=== PATIENT | female | born 1960 | race Caucasian/White ===

== ENCOUNTER → 2018-05-22 16:00 | Outpatient (CLI) | payer OTHER | END | disposition home or self-care (01) | LOC: D.MRI 16:00 | DX: M54.31 Sciatica, right side (principal) ==

== ENCOUNTER → 2019-09-09 14:13 | Outpatient (CLI) | payer OTHER | END | disposition home or self-care (01) | LOC: D.US 08:30 | PROVIDERS: ATTEND Nurse Practitioner | DX: R94.5 Abnormal results of liver function studies (principal) ==

== ENCOUNTER → 2019-09-15 20:29 | Outpatient (CLI) | payer OTHER | END | disposition home or self-care (01) | LOC: D.MAMMO 08-17 13:00 | PROVIDERS: ATTEND Family Medicine | DX: Z12.31 Encounter for screening mammogram for malignant neoplasm of breast (principal) ==

== ENCOUNTER → 2020-03-09 08:57 | Outpatient (CLI) | payer OTHER ==
[2020-03-09 10:07] LABS: ALBUMIN 3.6 g/dL (3.4-5.0); BILIRUBIN - DIRECT 0.1 mg/dL (0.00-0.30); BILIRUBIN - INDIRECT 0.2 mg/dL (0.00-1.00); BILIRUBIN - TOTAL 0.3 mg/dL (0.2-1.3); PROTEIN - SERUM 7.2 g/dL (6.4-8.2)
== END | disposition home or self-care (01) ==
LOC: D.US 02-15 08:30
PROVIDERS: ATTEND Internal Medicine Gastroenterology
DX: K76.0 Fatty (change of) liver, not elsewhere classified (principal)

== ENCOUNTER → 2020-09-29 08:52 | Outpatient (CLI) | payer OTHER | END | disposition home or self-care (01) | LOC: D.NM 08:52 | PROVIDERS: ATTEND Internal Medicine Gastroenterology | DX: R93.89 Abnormal findings on diagnostic imaging of other specified body structures (principal) ==

== ENCOUNTER 2020-09-29 11:00 | Outpatient (CLI) | payer OTHER ==
[2020-09-06 11:03] LABS: ALBUMIN 3.5 g/dL (3.4-5.0); BILIRUBIN - DIRECT 0.15 mg/dL (0.00-0.30); BILIRUBIN - INDIRECT 0.4 mg/dL (0.00-1.00); BILIRUBIN - TOTAL 0.55 mg/dL (0.2-1.3); PROTEIN - SERUM 7.4 g/dL (6.4-8.2)
== END 2020-09-29 11:30 | disposition home or self-care (01) ==
LOC: D.US 11:00
PROVIDERS: ATTEND Internal Medicine Gastroenterology
DX: K76.0 Fatty (change of) liver, not elsewhere classified (principal)

== ENCOUNTER 2020-11-03 08:18 | Day surgery (SDC) | payer OTHER ==
[2020-11-02 13:36] LABS: BASOPHILS 0.6 % (0-2); EOSINOPHILS 3.2 % (0-7); HEMATOCRIT 40.6 % (36.0-48.0); HEMOGLOBIN 13.4 g/dL (12-16); IMMATURE GRANULOCYTES 0.2 % (0-5); LYMPHOCYTE ABS# 1.62 10x3/uL (1.18-3.74); LYMPHOCYTES 32.4 % (15-50); MCH 29.3 pg (26.0-34.0); MCV 88.6 fL (80.0-100.0); MEAN PLATELET VOLUME 10.6 fL (7.4-10.4); MONOCYTES 8.2 % (2-11); NEUTROPHIL ABS# 2.77 10x3/uL (1.56-6.13); NEUTROPHILS 55.4 % (40-80); PLATELET COUNT 203 10x3/uL (130-400); RBC 4.58 10x6/uL (4.00-5.40); RDW 12.9 % (11.5-14.5)
[2020-11-02 13:41] LABS: CALCIUM 10.6 mg/dL (8.5-10.1); CARBON DIOXIDE 29.8 mmol/L (21.0-32.0); CREATININE - SERUM 0.9 mg/dL (0.6-1.3); POTASSIUM - SERUM 3.8 mmol/L (3.5-5.1)
[~2020-11-03] VITALS: Ht 160 cm; Wt 109.5 kg
[~2020-11-03 08:18] MED LIST: ASCORBIC ACID500 MG PO; BAYER CHEWABLE81 MG PO; CENTRUM SILVER1 EAC3 PO; GALZIN50 MG PO; GLUCOPHAGE500 MG PO; IBUPROFEN800 MG PO; LIPITOR20 MG PO; LOSARTAN-HCTZ1 EAC1 PO; PROAIR HFA8.5 G1 INH; PROTONIX40 MG PO; SINGULAIR10 MG PO; SUPER B COMPLE1 EAC1 PO; VITAMIN D325 MC1 PO
[2020-11-03 08:36] VITALS: BP 134/61; Ht 160 cm; Wt 109.5 kg
[2020-11-03] MEDS ORDERED: HYDROCODON-ACE1 EA10 PO (12:36)
--- NOTE | 2020-11-03 14:18 | NUR ---
1407 SECOND BAG OF NS HUNG FOR LOW BLOOD PRESSURE. PT IS AAOX3. STATES PAIN HAS DECREASED FROM INITIAL ASSESSMENT. ABDOMEN SOFT. HR IN 70'S.
--- NOTE | 2020-11-03 16:35 | NUR ---
1510 VOIDED X1 IN BATHROOM. 1530 IV REMOVED AND VS STABLE. INSTRUCTIONS GIVEN.
--- NOTE | 2020-11-04 13:31 | OP ---
PATIENT NAME: INDIO ZAMBRANO MEDICAL RECORD: [id number] :64 LOCATION:D.OPS ADMISSION DATE: SURGEON: BAR MONROE MD DATE OF OPERATION: 11/03/2020 PREOPERATIVE DIAGNOSES: 1. Biliary dyskinesia. 2. Hypertension. 3. Diabetes mellitus. 4. Morbid obesity with a BMI of 43. POSTOPERATIVE DIAGNOSES: 1. Biliary dyskinesia. 2. Hypertension. 3. Diabetes mellitus. 4. Morbid obesity with a BMI of 43. PROCEDURE: Laparoscopic cholecystectomy. SURGEON: Bar Monroe MD REPORT OF PROCEDURE: The patient's abdomen was prepped and draped in sterile fashion. A cutdown was made on the superior aspect of the umbilicus. 0 Vicryls were placed on the fascia bilaterally and the fascia was incised with a 15-blade. I then bluntly entered the peritoneal cavity and placed a 12-mm Esme port. Under direct visualization, a 5-mm trocar was placed in the epigastrium and 2 more 5-mm trocars were placed in the right subcostal region. The gallbladder was grasped and elevated and was noted to be markedly distended. There are no signs of any acute inflammatory changes. We aspirated the gallbladder to ease with grasping. The cystic artery and cystic duct were dissected free and these were clipped proximally and distally and ligated in standard fashion. The gallbladder was taken off the liver bed using electrocautery and placed into an EndoCatch bag. The right upper quadrant was irrigated out and any bleeding that was found was treated with electrocautery. At this point, the ports and insufflation were then removed and the gallbladder was taken out through the umbilicus. The umbilical fascia was closed with interrupted 0 Vicryls times 3. The wounds were then irrigated out with normal saline and infused with 10 mL of 0.25% Marcaine with epinephrine. The skin incisions were all closed with subcutaneous 5-0 Monocryl and dressed appropriately. COMPLICATIONS: None. CONDITION: Stable. ANESTHESIA: General endotracheal and local. BLOOD LOSS: Minimal. TRANSINT:[id number] Voice Confirmation ID: [id number] DOCUMENT ID: [id number] OPERATIVE REPORT [id number] INDIO ZAMBRANO BAR MONROE MD at 1335 CC: TAWANDA MAO APRN [id number] DICTATION DATE: 11/03/20 1236 SHOW GIRL: 11/03/20 1312 [facility] [place] 11/03/20 [facility] [address] [place] [address]
== END 2020-11-03 15:55 | disposition home or self-care (01) ==
LOC: D.OPS 08:18
PROVIDERS: Anesthesiology; ATTEND Surgery
DX: K82.8 Other specified diseases of gallbladder (principal); I10 Essential (primary) hypertension; E11.9 Type 2 diabetes mellitus without complications; E66.01 Morbid (severe) obesity due to excess calories; Z68.41 Body mass index [BMI] 40.0-44.9, adult